=== PATIENT | male | born 1985 | race African-American/Black ===

== ENCOUNTER 2017-02-05 22:23 | Emergency (ER) | payer BC, OTHER ==
[~2017-02-05] VITALS: Ht 170.2 cm; Wt 81.6 kg
[~2017-02-05 22:23] MED LIST: BACTRIM-DS1 EA ORAL; IBUPROFEN800 MG ORAL; LEVAQUIN500 MG ORAL; NKM; NORCO 5-325 TA1 EACH ORAL
--- NOTE | 2017-02-05 22:34 | Emergency Room Report ---
History of Present Illness General Chief Complaint: Altered Level of Consciousness Source: Significant Other, EMS Present Illness HPI This is a 31-year-old male with no past history. For the last couple weeks he' s been doing a liquid diet. Today he had some animal marijuana. He began to be dizzy and vomiting. Afterward he has decreased mentation. His significant other was concerned called 911. Patient follow simple commands but not alert. Denies any trauma. No fever or chills. No chest pain. No other focal deficit. Allergies: Coded Allergies: No Known Allergies (Unverified , 01/26/14) Patient History Past Medical History: see triage record, old chart reviewed Past Surgical History: none Pertinent Family History: none Social History: Denies: smoking Immunizations: other Reviewed Nursing Documentation: PMH: Agreed, PSxH: Agreed Nursing Documentation-PMH Past Medical History: No History, Except For Hx Seizures: Yes Review of Systems Eye: Denies: blurred vision, eye pain ENT: Denies: ear pain, nose congestion, throat swelling Respiratory: Denies: cough, shortness of breath Cardiovascular: Denies: chest pain, palpitations Gastrointestinal: Denies: abdominal pain, diarrhea, nausea, vomiting Musculoskeletal: Denies: back pain, joint pain Skin: Denies: rash Neurological: Denies: headache, numbness Endocrine: Denies: increased thirst, increased urine Hematologic/Lymphatic: Denies: easy bruising All Other Systems: negative except mentioned in HPI Physical Exam Vital Signs Date Time Temp Pulse Resp B/P Pulse Ox O2 Delivery O2 Flow Rate FiO2 02/05/17 22:19 97.5 113 16 122/87 99 Room Air vitals with tachycardia Sp02 EP Interpretation: reviewed, normal General Appearance: well appearing, no apparent distress, alert Head: normocephalic, atraumatic Eyes: bilateral eye EOMI, bilateral eye PERRL ENT: hearing grossly normal, normal pharynx Neck: full range of motion, supple, no meningismus Respiratory: chest non-tender, lungs clear, normal breath sounds Cardiovascular #1: regular rate, rhythm, no murmur Gastrointestinal: normal bowel sounds, non tender, no mass, no organomegaly, no bruit, non-distended Musculoskeletal: back normal, normal range of motion Psychiatric: mood/affect normal Skin: warm/dry Medical Decision Making Diagnostic Impression: Primary Impression: Altered level of consciousness Additional Impression: Marijuana intoxication Qualified Codes: F12.920 - Cannabis use, unspecified with intoxication, uncomplicated ER Course Patient presents with altered mental status after smoking marijuana. He is improving. Now he knows in the hospital with family by bedside. We'll discharge home. No evidence of other drug abuse. No evidence of CVA or TIA. No other infection. We'll discharge home. Last Vital Signs Date Time Temp Pulse Resp B/P Pulse Ox O2 Delivery O2 Flow Rate FiO2 02/05/17 22:19 97.5 113 16 122/87 99 Room Air Status: improved Disposition: HOME, SELF-CARE Condition: Stable Additional Instructions: Followup with your Dr. in 7 days. Return if symptom worsen. EVERT NEGRON M.D. Feb 05, 2017 22:34
[2017-02-05 22:47] VITALS: BP 122/72
[2017-02-05 22:59] LABS: APPEARANCE,URINE CLEAR; KETONES,URINE NEGATIVE (NEGATIVE); LEUKOCYTE ESTERASE ,URINE 1+ (NEGATIVE); NITRITE,URINE NEGATIVE (NEGATIVE); PH,URINE 6 (4.5-8.0); PROTEIN,URINE NEGATIVE (NEGATIVE); UROBILINOGEN,URINE NORMAL MG/DL (0.0-1.0)
[2017-02-05 23:04] LABS: BASOPHILS % (AUTO) 1.5 % (0.0-2.0); EOSINOPHILS % (AUTO) 2.3 % (0.0-3.0); LYMPHOCYTES % (AUTO) 29.5 % (20.0-45.0); MEAN CORPUSCULAR HEMOGLOBIN 29.4 PG (27.0-31.0); MEAN CORPUSCULAR HGB CONC 32.3 G/DL (32.0-36.0); MEAN CORPUSCULAR VOLUME 91 FL (80-99); MEAN PLATELET VOLUME 7.8 FL (6.5-10.1); MONOCYTES % (AUTO) 6.9 % (1.0-10.0); NEUTROPHILS % (AUTO) 59.8 % (45.0-75.0); PLATELET COUNT 255 K/UL (150-450); RED BLOOD COUNT 4.73 M/UL (4.70-6.10); RED CELL DISTRIBUTION WIDTH 12.5 % (11.6-14.8); WHITE BLOOD COUNT 9.4 K/UL (4.8-10.8)
[2017-02-05 23:11] LABS: ANION GAP 18 (5-15); CALCIUM 9.3 mg/dL (8.6-10.2); CARBON DIOXIDE 26 mEQ/L (20-30); CHLORIDE 99 mEQ/L (98-107); CREATININE 1.1 mg/dL (0.7-1.2); GLOMERULAR FILTRATION RATE > 60 mL/min (>60); HEMOLYSIS 63; SODIUM 143 mEQ/L (135-145)
[2017-02-05 23:49] LABS: BACTERIA,URINE FEW /HPF; RBC,URINE 0 /HPF (0 - 0)
[2017-02-06 00:20] VITALS: BP 12/68
[2017-02-06 00:28] VITALS: BP 12/68
== END 2017-02-06 00:28 | disposition home or self-care (01) ==
LOC: EDBD 22:23 → EMR 22:38
DX: R40.4 Transient alteration of awareness (principal); F12.920 Cannabis use, unspecified with intoxication, uncomplicated
CPT/HCPCS: 36415; 80048; 80300; 81001; 85025; 96374; 96375; 99284; J2405